=== PATIENT | male | born 1975 | race Two or more races ===

== ENCOUNTER 2016-03-06 14:35 | Emergency (ER) | payer OTHER ==
[2016-03-06 14:52] VITALS: BP 121/72; PULSE 84; TEMP 98.3; BMI 25.8
[2016-03-06 17:11] LABS: BASOPHIL 0.8 % (0-2.0); EOSINOPHIL 1.8 % (0-4.5); MCH 33.7 pg (25.7-33.7); MCHC 34.2 g/dl (32.0-35.9); MEAN CELL VOLUME 98.5 fl (80-96); NEUTROPHILS 67.4 % (42.8-82.8); RDW 13.3 % (11.9-15.9); WHITE BLOOD COUNT 7.8 K/mm3 (4.0-10.0)
--- NOTE | 2016-03-06 17:18 | PDOC ---
[id number] Initial Comments: 03/06/16 17:12 Mr. Maier is a 41 y/o male with no medical history presenting to the ED today complaining of RUQ abdominal pain and a R cheek boil. Pt. states that he has had some RUQ abdominal cramping over the last few weeks. He states that the pain comes and goes, with it being a 7/10 when its at its worse and 0/10 when the pain dissipates. He hasn't noted if the pain is better or worse with eating. Denies N/V/D, chest pain, palpitations, SOB. In regards to the boil on his face, it has been there for approximately one month and getting bigger in size. He states the area is warm to the touch and he has not been able to express any fluid from the site. He hopes he can have it drained today. <Kaylen Adhikari - Last Filed: 03/10/16 22:16> - General Chief Complaint: Pain, Acute Stated Complaint: ABD PAIN,BOIL Time Seen by Provider: 03/06/16 15:53 Past History <Jameson Matos - Last Filed: 03/06/16 19:45> - Past Medical History Other medical history: DENIES. - Immunization History Immunization Up to Date: No - Psycho/Social/Smoking Cessation Hx Anxiety: No Suicidal Ideation: No Smoking Status: Yes Smoking History: Current every day smoker Have you smoked in the past 12 months: Yes Number of Cigarettes Smoked Daily: 20 Information on smoking cessation initiated: No Hx Alcohol Use: Yes Drug/Substance Use Hx: No <Kaylen Adhikari - Last Filed: 03/10/16 22:16> - Past Medical History Allergies/Adverse Reactions: Allergies Allergy/AdvReac Type Severity Reaction Status Date / Time No Known Allergies Allergy Verified 03/06/16 14:48 Home Medications: Ambulatory Orders Cephalexin Monohydrate [Keflex -] 500 mg PO BID #14 capsule 03/06/16 Sulfamethoxazole/Trimethoprim [Bactrim Ds -] 1 tab PO BID #14 tablet 03/06/16 *Physical Exam - Vital Signs Last Vital Signs Temp Pulse Resp BP Pulse Ox 98.3 F 84 19 121/72 96 03/06/16 14:48 03/06/16 14:48 03/06/16 14:48 03/06/16 14:48 03/06/16 14:48 <Jameson Matos - Last Filed: 03/06/16 19:45> - Vital Signs Last Vital Signs Temp Pulse Resp BP Pulse Ox 98.3 F 84 19 121/72 96 03/06/16 14:48 03/06/16 14:48 03/06/16 14:48 03/06/16 14:48 03/06/16 14:48 - Physical Exam Comments: 03/06/16 17:18 GENERAL: The patient is awake, alert, and fully oriented, in no acute distress. HEAD: Normal with no signs of trauma. ENT: Pupils equal, round and reactive to light, extraocular movements intact, sclera anicteric, conjunctiva clear. Neck supple. LUNGS: Clear to auscultation bilaterally. Normal excursion. No respiratory distress or use of accessory muscles. CV: RRR, S1/S2, no MRG. Cap refill < 2 sec. ABDOMEN:(+) tenderness RUQ, (+) brandon's sign. Soft, non-distended. Normoactive bowel sounds present x4 quadants. EXTREMITIES: Normal range of motion, no edema. NEUROLOGICAL: Normal speech, normal gait. CN II-XII grossly intact. PSYCH: Normal mood, normal affect. SKIN: A fluctant mass approximately is noted on the R mandible area. There is no evidence of cellulitis. There is an obvious head to the cyst. Warm, dry, normal turgor, no rashes or lesions noted. <Kaylen Adhikari - Last Filed: 03/10/16 22:16> ED Treatment Course - LABORATORY CBC & Chemistry Diagram: 03/06/16 17:00 03/06/16 19:00 - ADDITIONAL ORDERS Additional order review: Laboratory Results 03/06/16 03/06/16 03/06/16 19:00 18:40 17:00 Sodium 143 Potassium 4.4 Chloride 106 Carbon Dioxide 30 Anion Gap 7 L BUN 12 Creatinine 0.9 Creat Clearance w eGFR > 60 Random Glucose 89 Calcium 9.6 Total Bilirubin 0.7 AST 14 L ALT 25 Alkaline Phosphatase 72 Total Protein 7.3 Albumin 4.1 Lipase 92 Urine Color Ltyellow Urine Appearance Clear Urine pH 5.0 Ur Specific [place] 1.013 Urine Protein Negative Urine Glucose (UA) Negative Urine Ketones Negative Urine Blood Negative Urine Nitrite Negative Urine Bilirubin Negative Urine Urobilinogen Negative Ur Leukocyte Esterase Negative 03/06/16 17:00 Sodium Cancelled Potassium Cancelled Chloride Cancelled Carbon Dioxide Cancelled Anion Gap Cancelled BUN Cancelled Creatinine Cancelled Creat Clearance w eGFR Cancelled Random Glucose Cancelled Calcium Cancelled Total Bilirubin Cancelled AST Cancelled ALT Cancelled Alkaline Phosphatase Cancelled Total Protein Cancelled Albumin Cancelled Lipase Urine Color Urine Appearance Urine pH Ur Specific [place] Urine Protein Urine Glucose (UA) Urine Ketones Urine Blood Urine Nitrite Urine Bilirubin Urine Urobilinogen Ur Leukocyte Esterase 03/06/16 17:00 RBC 4.81 MCV 98.5 H MCHC 34.2 RDW 13.3 Neutrophils % 67.4 Lymphocytes % 25.2 D Monocytes % 4.8 Eosinophils % 1.8 Basophils % 0.8 <Jameson Matos - Last Filed: 03/06/16 19:45> - LABORATORY CBC & Chemistry Diagram: 03/06/16 17:00 03/06/16 19:00 - RADIOLOGY Radiology Studies Ordered: Category Date Time Status GALLBLADDER US [US] Stat Ultrasound 03/06/16 16:08 Ordered <Kaylen Adhikari - Last Filed: 03/10/16 22:16> Medical Decision Making - Medical Decision Making 03/06/16 19:44 CMP- WNL. D/C patient to home. <Jameson Matos - Last Filed: 03/06/16 19:45> - Medical Decision Making 03/06/16 17:20 Mr. Lebron is a 41 y/o male with no PMH complaining of RUQ pain and a cyst on his R mandible. Given the colic nature of his pain and (+) brandon's I suspect possible cholecystitis. Will r/o other infection 1. Will order CBC, CMP, UA to evaluate abdominal pain 2. Will order US Gallbadder. 3. Will drain cyst. Will re-evaluate. 03/06/16 19:00 Drained the cyst on his R mandible with an 18 gauge needle. No anesthesia was needed for the procedure. Area was sterilized with betadine. Needle entered the sac and a large amount of white pus evacuated from the area. Assured full drainage. No loculations felt after drainage. Bleeding controlled with pressure. Band-aid placed over site. Will refer to endorsement clerk for removal of the sac. Ultra sound of the gall bladder shows mild distention without presence of gallstones or pericolic stranding. No acute findings at this time. Will recommend keeping food journal to see when the pain occurs again. CBC WNL. CMP speciemin hemolyzed. Waiting on redraw. If CMP is WNL, will discharge home Sign out given to Jameson Matos. Case was discussed and plan was confirmed. Waiting on labs to discharge home <Kaylen Adhikari - Last Filed: 03/10/16 22:16> *DC/Admit/Observation/Transfer - Discharge Dispostion Admit: No <Jameson Matos - Last Filed: 03/06/16 19:45> <Kaylen Adhikari - Last Filed: 03/10/16 22:16> Diagnosis at time of Disposition: Abscess Abdominal pain Qualifiers: Abdominal location: right upper quadrant Qualified Code(s): R10.11 - Right upper quadrant pain - Discharge Dispostion Disposition: HOME - Prescriptions Prescriptions: Sulfamethoxazole/Trimethoprim [Bactrim Ds -] 1 tab PO BID #14 tablet Cephalexin Monohydrate [Keflex -] 500 mg PO BID #14 capsule - Patient Instructions Printed Discharge Instructions: DI for Abdominal Pain-Adult, DI for Skin Abscess Additional Instructions: FOLLOW UP WITH YOUR DOCTOR THIS WEEK. CALL TO SCHEDULE APPOINTMENT. YOU MAY NEED A SURGEON TO FURTHER EVALUATION BOIL/ABSCESS TO FACE. TAKE MEDICATIONS PRESCRIBED WITH FOOD. RETURN IF ANY CONCERNS FOR FURTHER EVALUATION. Print Language: ROMANIAN
[2016-03-06 18:47] LABS: URINE APPEARANCE CLEAR; URINE BILIRUBIN NEGATIVE (NEGATIVE); URINE BLOOD NEGATIVE (NEGATIVE); URINE COLOR LTYELLOW; URINE GLUCOSE (UA) NEGATIVE (NEGATIVE); URINE KETONE NEGATIVE (NEGATIVE); URINE LEUK ESTERASE NEGATIVE (NEGATIVE); URINE NITRITE NEGATIVE (NEGATIVE); URINE PROTEIN NEGATIVE (NEGATIVE); URINE UROBILINOGEN NEGATIVE E.U./dl (0.2-1.0)
[2016-03-06 19:33] LABS: ALBUMIN 4.1 g/dl (3.4-5.0); ANION GAP 7 (8-16); CALCIUM 9.6 mg/dL (8.5-10.1); CO2 30 mmol/L (21-32); CREATININE 0.9 mg/dL (0.7-1.3); GLUCOSE,RANDOM 89 mg/dL (74-106); SGOT/AST 14 U/L (15-37); SGPT/ALT 25 U/L (12-78)
[2016-03-06 19:34] LABS: ALK PHOS 72 U/L (45-117); BILIRUBIN,TOTAL 0.7 mg/dL (0.2-1.0); TOT PROT 7.3 g/dl (6.4-8.2)
== END 2016-03-06 20:15 | disposition home or self-care (01) ==
LOC: JER 14:35
PROC: 0J913ZZ Drainage of Face Subcutaneous Tissue and Fascia, Percutaneous Approach (ICD-10-PCS; principal; 2016-03-06)
DX: L02.01 Cutaneous abscess of face (principal); R10.11 Right upper quadrant pain
CPT/HCPCS: 10160; 36415; 76705-TC; 80053; 81003; 83690; 85025; 99282-25

== ENCOUNTER 2018-11-05 21:40 | Emergency (ER) | payer OTHER ==
[2018-11-05 21:49] VITALS: BMI 22.8
--- NOTE | 2018-11-05 22:26 | PDOC ---
History of Present Illness - General Chief Complaint: Pain, Acute Stated Complaint: ABD PAIN Time Seen by Provider: 11/05/18 22:20 History Source: Patient - History of Present Illness Initial Comments: 11/05/18 22:21 43 year old c/o right groin pain for months today pain is constant. denies vomiting patient reports diarrhea. denies fever/ chills. denies urinary symptoms. denies tesicular pain . patient reports that " i think i have a hernia " PMHX: none 11/05/18 22:25 11/05/18 22:25 Past History - Past Medical History Allergies/Adverse Reactions: Allergies Allergy/AdvReac Type Severity Reaction Status Date / Time No Known Allergies Allergy Verified 11/05/18 21:46 COPD: No - Immunization History Immunization Up to Date: No - Psycho Social/Smoking Cessation Hx Smoking Status: Yes Smoking History: Current some day smoker Have you smoked in the past 12 months: No Number of Cigarettes Smoked Daily: 20 Information on smoking cessation initiated: No Hx Alcohol Use: No Drug/Substance Use Hx: No Substance Use Type: None Review of Systems - Review of Systems Able to Perform ROS?: Yes Is the patient limited Latvian proficient: No Constitutional: No: Symptoms Reported, See HPI, Chills, Diaphoresis, Fever, Loss of Appetite, Malaise, Night Sweats, Weakness, Weight Stable, Unintentional Wgt. Loss, Unexplained wgt Loss, Other ABD/GI: Yes: Other (right sided groin pain and RLQ pain) *Physical Exam - Vital Signs Last Vital Signs Temp Pulse Resp BP Pulse Ox 98.8 F 88 18 122/72 96 11/05/18 21:46 11/05/18 21:46 11/05/18 21:46 11/05/18 21:46 11/05/18 21:46 - Physical Exam General Appearance: Yes: Appropriately Dressed Respiratory/Chest: positive: Lungs Clear, Labored Respiration Gastrointestinal/Abdominal: positive: Normal Bowel Sounds, Soft. negative: Tender Male Genitalia: positive: normal genitalia, inguinal hernia (right inguinal reducible). negative: testicular tenderness, testicular mass Musculoskeletal: positive: Normal Inspection. negative: CVA Tenderness Integumentary: positive: Normal Color, Dry, Warm Neurologic: positive: Fully Oriented, Alert, Normal Mood/Affect ED Progress Note - Progress Note Progress Note: 11/06/18 01:09 right inguinal hernia P: outpatient surgery follow up. strict return precautions reviewed with patient Discharge - Discharge Information Problems reviewed: Yes Clinical Impression/Diagnosis: Right inguinal hernia - Follow up/Referral Referrals: Corwin Singleton MD [Staff Physician] - Kashmir Ortiz [Staff Physician] - - Patient Discharge Instructions Patient Printed Discharge Instructions: Groin Hernia -- Adult Additional Instructions: your exam it shows that you have a right inguinal hernia. Return to the emergency room if the hernia is stuck or unable to reduce or increased swelling. Return to the emergency room if he developed fever nausea vomiting or any worsening abdominal pain.Follow up with an surgeon as soon as possible. - Post Discharge Activity Work/Back to School Note: Back to Work
[2018-11-05 22:53] VITALS: BP 134/65; PULSE 67; TEMP 98
== END 2018-11-05 22:56 | disposition home or self-care (01) ==
LOC: JER 21:40
DX: K40.90 Unilateral inguinal hernia, without obstruction or gangrene, not specified as recurrent (principal); F17.210 Nicotine dependence, cigarettes, uncomplicated
CPT/HCPCS: 99282-25

== ENCOUNTER 2019-03-03 22:55 | Emergency (ER) | payer OTHER ==
[2019-03-03 23:16] VITALS: BP 126/73; PULSE 88; TEMP 98.1; BMI 32.8
--- NOTE | 2019-03-04 00:55 | PDOC ---
History of Present Illness - General Chief Complaint: Hematuria Stated Complaint: URINATING BLOOD Time Seen by Provider: 03/04/19 00:54 Past History - Past Medical History Allergies/Adverse Reactions: Allergies Allergy/AdvReac Type Severity Reaction Status Date / Time No Known Allergies Allergy Verified 03/03/19 23:09 COPD: No - Immunization History Immunization Up to Date: No - Psycho Social/Smoking Cessation Hx Smoking Status: Yes Smoking History: Never smoked Have you smoked in the past 12 months: No Number of Cigarettes Smoked Daily: 20 Hx Alcohol Use: No Drug/Substance Use Hx: No Substance Use Type: None *Physical Exam - Vital Signs Last Vital Signs Temp Pulse Resp BP Pulse Ox 98.1 F 88 19 126/73 98 03/03/19 23:00 03/03/19 23:00 03/03/19 23:00 03/03/19 23:00 03/03/19 23:00 Discharge - Discharge Information Condition: Fair - Follow up/Referral - Patient Discharge Instructions - Post Discharge Activity
--- NOTE | 2019-03-04 01:18 | PDOC ---
Documentation entered by Keaton Sheldon SCRIBE, acting as scribe for Marcia Han MD. Marcia Han MD: This documentation has been prepared by the Pito thurman Xhesika, SCRIBE, under my direction and personally reviewed by me in its entirety. I confirm that the documentation accurately reflects all work, treatment, procedures, and medical decision making performed by me. History of Present Illness - General Chief Complaint: Hematuria Stated Complaint: URINATING BLOOD Time Seen by Provider: 03/04/19 00:54 History Source: Patient Exam Limitations: No Limitations - History of Present Illness Initial Comments: 03/04/19 01:09 The patient is a 44 year old male with no significant PMH of who presents to the emergency department for hematuria and 1 episode of vomiting last night. The patient denies flank pain, chest pain, shortness of breath, headache and dizziness. Denies fever, chills, cough, nausea, diarrhea and constipation. Denies dysuria, frequency, urgency and hematuria. Allergies: NKDA Social Hx: 1/2 ppd smoker. Occasional alcohol use. Past History - Past Medical History Allergies/Adverse Reactions: Allergies Allergy/AdvReac Type Severity Reaction Status Date / Time No Known Allergies Allergy Verified 03/03/19 23:09 COPD: No - Immunization History Immunization Up to Date: No - Psycho Social/Smoking Cessation Hx Smoking Status: Yes Smoking History: Never smoked Have you smoked in the past 12 months: No Number of Cigarettes Smoked Daily: 20 Hx Alcohol Use: No Drug/Substance Use Hx: No Substance Use Type: None Review of Systems - Review of Systems Able to Perform ROS?: Yes Comments:: 03/04/19 01:10 GENERAL/CONSTITUTIONAL: No fever or chills. No weakness. HEAD, EYES, EARS, NOSE AND THROAT: No change in vision. No ear pain or discharge. No sore throat. CARDIOVASCULAR: No chest pain or shortness of breath. RESPIRATORY: No cough, wheezing, or hemoptysis. GASTROINTESTINAL: No nausea, diarrhea or constipation. +vomiting GENITOURINARY: No dysuria, frequency. +hematuria MUSCULOSKELETAL: No joint or muscle swelling or pain. No neck or back pain. SKIN: No rash NEUROLOGIC: No headache, vertigo, loss of consciousness, or change in strength/ sensation. ENDOCRINE: No increased thirst. No abnormal weight change. HEMATOLOGIC/LYMPHATIC: No anemia, easy bleeding, or history of blood clots. ALLERGIC/IMMUNOLOGIC: No hives or skin allergy. *Physical Exam - Vital Signs Last Vital Signs Temp Pulse Resp BP Pulse Ox 98.1 F 88 19 126/73 98 03/03/19 23:00 03/03/19 23:00 03/03/19 23:00 03/03/19 23:00 03/03/19 23:00 - Physical Exam 03/04/19 01:10 GENERAL: Awake, alert, and fully oriented, in no acute distress HEAD: No signs of trauma NECK: Normal ROM, supple, no lymphadenopathy, JVD, or masses LUNGS: Breath sounds equal, clear to auscultation bilaterally. No wheezes, and no crackles HEART: Regular rate and rhythm, normal S1 and S2, no murmurs, rubs or gallops ABDOMEN: +reproducible umbilical hernia. Soft, nontender, normoactive bowel sounds. No guarding, no rebound. No masses EXTREMITIES: Normal range of motion, no edema. No clubbing or cyanosis. No cords, erythema, or tenderness NEUROLOGICAL: Cranial nerves II through XII grossly intact. SKIN: Warm, Dry, normal turgor, no rashes or lesions noted. ED Treatment Course - LABORATORY CBC & Chemistry Diagram: 03/04/19 01:55 03/04/19 01:55 Medical Decision Making - Medical Decision Making 03/04/19 01:19 44-year-old male states that last evening he had an episode of vomiting and some hematuria He denies any past medical history, he denies any past surgical history Social history half a pack of tobacco daily, EtOH 03/04/19 01:51 Patient has benign abdominal exam, small reducible umbilical hernia UA does not show any hematuria and there is no UTI Patient has no fever chills and has had no nausea or vomiting today CBC, chemistry pending Discharge - Discharge Information Problems reviewed: Yes Clinical Impression/Diagnosis: Hematuria Qualifiers: Hematuria type: unspecified type Qualified Code(s): R31.9 - Hematuria, unspecified Umbilical hernia Qualifiers: Obstruction and gangrene presence: without obstruction or gangrene Qualified Code(s): K42.9 - Umbilical hernia without obstruction or gangrene Condition: Good Disposition: HOME - Admission No - Follow up/Referral Referrals: [facility] [place] [facility] [place] [Provider Group] Roland Mendosa MD [Staff Physician] - - Patient Discharge Instructions Patient Printed Discharge Instructions: Abdominal Hernia, DI for Hematuria Additional Instructions: Please follow up with the primary care doctor below. Please return if you have any new, worsening or concerning symptoms, especially increasing pain, fever, and vomiting. - Post Discharge Activity
[2019-03-04 01:35] LABS: URINE APPEARANCE CLEAR; URINE BILIRUBIN NEGATIVE (NEGATIVE); URINE COLOR YELLOW; URINE GLUCOSE (UA) NEGATIVE (NEGATIVE); URINE KETONE TRACE (NEGATIVE); URINE LEUK ESTERASE NEGATIVE (NEGATIVE); URINE NITRITE NEGATIVE (NEGATIVE); URINE PROTEIN NEGATIVE (NEGATIVE)
--- NOTE | 2019-03-04 02:10 | PDOC ---
*Physical Exam - Vital Signs Last Vital Signs Temp Pulse Resp BP Pulse Ox 98.1 F 88 19 126/73 98 03/03/19 23:00 03/03/19 23:00 03/03/19 23:00 03/03/19 23:00 03/03/19 23:00 ED Treatment Course - LABORATORY CBC & Chemistry Diagram: 03/04/19 01:55 03/04/19 01:55 - ADDITIONAL ORDERS Additional order review: Laboratory Results 03/04/19 01:26 Urine Color Yellow Urine Appearance Clear Urine pH 7.0 D Ur Specific [place] 1.028 Urine Protein Negative Urine Glucose (UA) Negative Urine Ketones Trace H Urine Blood Negative Urine Nitrite Negative Urine Bilirubin Negative Urine Urobilinogen 1.0 Ur Leukocyte Esterase Negative Medical Decision Making - Medical Decision Making 03/04/19 03:[address] Han. Patient is 44M here today reporting hematuria. UA clear. CBC stable. CMP shows normal kidney function. Will discharge home with PCP follow up. Patient also is requesting general surgery for hernia that is reducible and nontender. General surgery follow up given. Discharge - Discharge Information Problems reviewed: Yes Clinical Impression/Diagnosis: Hematuria, Umbilical hernia Condition: Good Disposition: HOME - Admission No - Follow up/Referral Referrals: Roland Mendosa MD [Staff Physician] - [facility] [place] [facility] [place] [Provider Group] - Patient Discharge Instructions Patient Printed Discharge Instructions: Abdominal Hernia, DI for Hematuria Additional Instructions: Please follow up with the primary care doctor below. Please return if you have any new, worsening or concerning symptoms, especially increasing pain, fever, and vomiting. - Post Discharge Activity
[2019-03-04 02:40] LABS: BASO % 0.5 % (0-2.0); EOS % 3.1 % (0-4.5); HEMATOCRIT 46.8 % (35.4-49); HEMOGLOBIN 15.7 GM/dL (11.7-16.9); LYMPH % 27.5 % (8-40); MCH 34.2 pg (25.7-33.7); MCHC 33.7 g/dl (32.0-35.9); MEAN CELL VOLUME 101.6 fl (80-96); MEAN PLT VOLUME 7.2 fl (7.5-11.1); MONO % 7.6 % (3.8-10.2); NEUT % 61.3 % (42.8-82.8); PLATELET COUNT 441 K/MM3 (134-434); RDW 13.2 % (11.9-15.9); WHITE BLOOD COUNT 9.1 K/mm3 (4.0-10.0)
[2019-03-04 03:12] LABS: ALBUMIN 3.6 g/dl (3.4-5.0); BILIRUBIN,TOTAL 0.1 mg/dL (0.2-1); BLOOD UREA NITROGEN 18.7 mg/dL (7-18); POTASSIUM 4.4 mmol/L (3.5-5.1); TOT PROT 6.6 g/dl (6.4-8.2)
== END 2019-03-04 03:39 | disposition home or self-care (01) ==
LOC: JER 22:55
DX: K42.9 Umbilical hernia without obstruction or gangrene (principal); F17.210 Nicotine dependence, cigarettes, uncomplicated
CPT/HCPCS: 36415; 80053; 81003; 85025; 99282-25

== ENCOUNTER → 2019-03-26 | Day surgery (SDC) | payer OTHER ==
[2019-03-25 15:18] VITALS: BMI 23.6
[~2019-03-26] MED LIST: BENZOIN/ALOE VERA/STORAX/TOLU 58 ML BOTTLE ONE; BUPIVACAINE HCL/PF 0.5% (5 MG/ML) 30 ML VIAL IJ ONE; DEXAMETHASONE SOD PHOSPHATE 4 MG/1 ML VIAL ONE; KETOROLAC TROMETHAMINE 30 MG/1 ML VIAL ONE; LIDOCAINE HCL 1%, 10 MG/ML (20ML VIAL) NR ONE; LIDOCAINE HCL 1%, 10 MG/ML (20ML VIAL) ONE; LIDOCAINE HCL/PF 2% SDV 5ML VIAL ONE; MIDAZOLAM HCL 2 MG/2 ML SINGLE DOSE VIAL ONE; ONDANSETRON 4 MG/2 ML VIAL IVPUSH PRN; PROMETHAZINE HCL 25 MG/1 ML VIAL IVPUSH PRN; ROCURONIUM BROMIDE 50 MG/5 ML SYRINGE ONE; ceFAZolin 2 GRAM PREMIX BAG IVPB ONE; ceFAZolin SODIUM 1 GM VIAL ONE; fentaNYL CITRATE 250 MCG/5 ML VIAL ONE; oxyCODONE HCL 5 MG TABLET PO PRN
--- NOTE | 2019-03-26 12:19 | HP ---
History & Physical Update - History History: No Change - Physical Physical: No Change - Assessment Assessment: No Change - Plan Plan: No Change (for repair right inguinal hernia w/mesh and umbilical hernia and ecision of soft tissue mass left lateral thigh; informed consent obtained this AM.)
--- NOTE | 2019-03-26 15:35 | OP ---
Operative Note - Note: Operative Date: 03/26/19 Pre-Operative Diagnosis: right inguinal hernia/umbilical hernia/left alteral thigh mass Operation: repair right inguinal hernia w/mesh; repair umbilical hernia and excision of soft tissue mass of the left lateral thigh Findings: indirect LIH w/lipoma of the cord and weak floor; umbilical hernia w/ 1.5 cm. fascial defect and ~ 6.0 cm. sebaceous cyst of the left lateral thigh. Post-Operative Diagnosis: Same as Pre-op Surgeon: Roland Mendosa Buildings And Grounds Director: Leonidas Garcia II Anesthesiologist/BOTTLE LINE WORKER: Chavez Lyons Anesthesia: General Specimens Removed: inguinal hernia sac/lipoma of the cord/umbilical hernia sac/ sebaceus cyst Estimated Blood Loss (mls): 15
--- NOTE | 2019-03-26 15:54 | SURG ---
Surgery Property Management Supervisor Note Property Management Supervisor: THEA Mazariegos Date of Service: 03/26/19 Diagnosis: Pre-Operative Diagnosis: right inguinal hernia/umbilical hernia/left alteral thigh mass Procedure: Operation: repair right inguinal hernia w/mesh; repair umbilical hernia and excision of soft tissue mass of the left lateral thigh I was present for the entirety of the operative procedure. For further detail, please refer to operative report.
[2019-03-26 17:58] VITALS: BP 147/83; PULSE 98; TEMP 98.5
--- NOTE | 2019-03-28 19:00 | PATH ---
Surgical Pathology Report Patient Name: MARIANELA CORDOVA [facility]. Rec. #: [id number] /Age/Gender: 1975 (Age: 44) / M Account: [id number] Location: [facility] Taken: 03/26/2019 Received: 03/27/2019 Reported: 03/28/2019 Physicians: Roland Mendosa MD Specimen(s) Received A: INGUINAL HERNIA SAC B: UMBILICAL HERNIA SAC C: SOFT TISSUE MASS LEFT LATERAL THIGH Clinical History Right inguinal hernia, umbilical hernia, left lateral thigh mass Final Diagnosis A. INGUINAL HERNIA SAC, RIGHT, REPAIR: HERNIA SAC. B. UMBILICAL HERNIA SAC, REPAIR: FIBROADIPOSE TISSUE COMPATIBLE WITH HERNIA SAC. C. SOFT TISSUE MASS, LATERAL THIGH, LEFT, EXCISION: EPIDERMAL INCLUSION CYST. Electronically Signed Cristela Jacobs M.D. Gross Description A. Received in formalin labeled "hernia sac inguinal," are 2 shipley deal, irregular portions of fibrous tissue and fat measuring 3.7 x 2.0 x 0.8 cm and 5.5 x 3.0 x 1.0 cm. No areas of hemorrhage or necrosis are identified. Stitcher Around sections are submitted in one cassette. B. Received in formalin labeled "umbilical hernia sac," is a 4.9 x 1.8 x 1.4 cm portion of fibromembranous tissue with attached fat, consistent with a hernia sac. No areas of hemorrhage or necrosis are identified. Stitcher Around sections are submitted in one cassette. C. Received in formalin labeled "soft tissue mass left lateral thigh," is a 2.7 x 2.5 x 2.0 cm shipley allen, encapsulated soft tissue mass. There is a 2.4 x 1.2 cm shipley-brown, elliptical, unremarkable portion of skin attached to the mass. Sectioning reveals an intact cyst containing shipley deal sebaceous material. A customer success representative section is submitted in one cassette. /03/27/2019 saudi03/27/2019
--- NOTE | 2019-04-01 11:20 | OP ---
DATE OF OPERATION: 03/26/2019 PREOPERATIVE DIAGNOSIS: Right inguinal hernia, umbilical hernia, and left lateral thigh mass. POSTOPERATIVE DIAGNOSIS: Right inguinal hernia, umbilical hernia, and left lateral thigh mass. PROCEDURE: Repair right inguinal hernia with mesh and repair of umbilical hernia and excision of soft tissue mass of the left lateral thigh. SURGEON: Roland Mendosa MD ARMATURE REWINDER: Leonidas Garcia II, PA-C ANESTHESIA: General. OPERATIVE FINDINGS: There was an indirect right inguinal hernia with a lipoma of the cord and weak floor. There was an umbilical hernia with a 1.5-cm fascial defect and an approximately 6-cm sebaceous cyst of the left lateral thigh. DESCRIPTION OF PROCEDURE: The patient was placed on the operating table in supine position. After the induction of general anesthesia, the patient's lower abdomen was prepped with ChloraPrep and draped in sterile fashion. A time-out was taken and incision mapped out in the right groin and the area infiltrated with 1% Xylocaine, 0.5% Marcaine in equal concentrations. Incision was made with a scalpel and taken down through skin and subcutaneous tissue and through La fascia to the external oblique fascia, which was divided proximally and distally in the direction of its fibers. The cord structures and nerve were elevated at the level of the pubic tubercle and a Avilla drain placed around them for retraction and identification purposes. Within the substance of the cord, an indirect inguinal hernia sac was identified. It was dissected up to the internal ring where a high ligation was carried out with 2-0 Vicryl suture and the redundant sac excised and sent for pathological examination. Similarly, a lipoma of the cord was clamped at its base, excised, and sent for pathological examination and the pedicle ligated with 2-0 Vicryl suture. Next, the floor of the inguinal canal was repaired by fashioning a piece of ProGrip mesh into the defect and anchoring it to the pubic tubercle, shelving edge, and conjoint tendon respectively. A keyhole was created through the cord structures, and they were brought above the cord and crossed and anchored there with interrupted 2-0 Prolene. Hemostasis was checked for and noted to be good, and the wound was copiously irrigated with sterile saline. The cord structures and nerve were returned to their normal anatomic position and the external oblique fascia closed over them using continuous 2-0 Vicryl recreating the external ring. La fascia was reapproximated with interrupted 2-0 Vicryl, the deep dermis with interrupted 3-0 Vicryl, and the skin edges with 4-0 Monocryl in a subcuticular fashion. Steri-Strips were placed and the incision covered with a sterile towel and then attention turned to the umbilical hernia site. An incision was mapped out on the infraumbilical skin crease from the 3 to 9 o' clock position, and incision was made with a scalpel and taken down through skin and subcutaneous tissue to the abdominal wall. The umbilical stalk was bluntly encircled and the umbilicus dissected off its stalk where the hernia sac was entered. Redundant sac was excised and sent for pathological examination and then the defect, which was 1.5 cm in diameter, was repaired with several 0 Ti-Cron horizontal mattress sutures. Hemostasis was checked for and noted to be good and then the wound was copiously irrigated with sterile saline and the umbilicus tacked down to the abdominal wall with interrupted 2-0 Vicryl and the deep dermis reapproximated with interrupted 3-0 Vicryl and the skin edges with 4-0 Monocryl in a subcuticular fascia. Steri-Strips were placed and then the incision covered with a sterile towel. Next, the left lateral thigh was prepped with ChloraPrep and draped after changing gowns and gloves where an incision mapped out over the palpable clinical approximately 6 cm in diameter sebaceous cyst. An elliptical incision to remove part of the skin attached to the cyst was included. Incision was made with a scalpel and taken down through skin and subcutaneous tissue, and using blunt dissection, the entire cyst and the overlying skin containing the punctum were excised and sent for pathological examination. Hemostasis was secured with electrocautery and the wound irrigated with sterile saline. The incision was closed in layers with interrupted 3-0 Vicryl for the deep dermis and 4-0 Monocryl in a subcuticular, continuous fashion to reapproximate the skin edges. Steri-Strips were placed and dry, sterile dressings placed on the remaining 2 incision sites and covered with Tegaderm dressing. The procedure was terminated at this point and the patient aroused from general anesthesia and transferred to the post anesthesia care unit in stable condition awake and alert. ESTIMATED BLOOD LOSS: 15 mL. REPLACEMENT: Crystalloid. DRAINS: None. SPECIMENS: Inguinal hernia sac, lipoma of the cord, umbilical hernia sac, and sebaceous cyst to Pathology. I, Roland Mendosa, was physically present in the operating room from the time the patient was placed on the operating room table until he was transferred to the post anesthesia care unit [facility]. MD DOMINIC Bonds/[id number] MTDD
== END | disposition home or self-care (01) ==
LOC: JASU-SURG 10:53
PROVIDERS: ATTEND Surgery
PROC: 0HQJXZZ Repair Left Upper Leg Skin, External Approach (ICD-10-PCS; 2019-03-26)
PROC: 0HBJXZZ Excision of Left Upper Leg Skin, External Approach (ICD-10-PCS; 2019-03-26)
PROC: 0YU50JZ Supplement Right Inguinal Region with Synthetic Substitute, Open Approach (ICD-10-PCS; principal; 2019-03-26 12:30)
PROC: 0WUF0JZ Supplement Abdominal Wall with Synthetic Substitute, Open Approach (ICD-10-PCS; 2019-03-26 12:30)
DX: K40.90 Unilateral inguinal hernia, without obstruction or gangrene, not specified as recurrent (principal); K42.9 Umbilical hernia without obstruction or gangrene; L72.0 Epidermal cyst
CPT/HCPCS: 88302-TC; 88304-TC; 94760

== ENCOUNTER 2022-01-18 20:44 | Emergency (ER) | payer OTHER ==
[2022-01-18 21:12] VITALS: BP 145/82; PULSE 92; RESP 18; TEMP 98.2; BMI 23.6
[2022-01-18] MEDS ORDERED: SODIUM CHLORIDE 0.9% 500 ML INFUS.BAG IV ONE (22:19)
[2022-01-18 23:59] LABS: BASO % 0.7 % (0-2.0); EOS % 2.1 % (0-4.5); HEMATOCRIT 44.1 % (35.4-49); HEMOGLOBIN 14.9 GM/dL (11.7-16.9); MCH 34.6 pg (25.7-33.7); MCHC 33.8 g/dl (32.0-35.9); MEAN CELL VOLUME 102.3 fl (80-96); MEAN PLT VOLUME 6.7 fl (7.5-11.1); MONO % 6.3 % (3.8-10.2); NEUT % 72.9 % (42.8-82.8); PLATELET COUNT 400 10^3/uL (134-434); RBC 4.31 M/mm3 (4.00-5.60); RDW 12.7 % (11.9-15.9); WHITE BLOOD COUNT 12.9 K/mm3 (4.0-10.0)
[2022-01-19 00:09] LABS: INR 0.96 (0.83-1.09)
[2022-01-19 00:12] LABS: ACTIVATED PTT 28.3 SECONDS (25.2-36.5)
[2022-01-19 00:23] LABS: ALBUMIN 3.4 g/dl (3.4-5.0); BLOOD UREA NITROGEN 16.1 mg/dL (7-18); CALCIUM 8.6 mg/dL (8.5-10.1)
[2022-01-19 00:26] LABS: CREATININE 0.9 mg/dL (0.55-1.3)
[2022-01-19 00:28] LABS: BILIRUBIN,TOTAL 0.3 mg/dL (0.2-1); TOT PROT 6.6 g/dl (6.4-8.2)
[2022-01-19] MEDS ORDERED: ACETAMINOPHEN 1000 MG/100 ML BAG IVPB ONE (02:35)
== END 2022-01-19 04:00 | disposition left against medical advice (07) ==
LOC: JER 20:44
PROC: 3E0333Z Introduction of Anti-inflammatory into Peripheral Vein, Percutaneous Approach (ICD-10-PCS; principal; 2022-01-18)
DX: M79.641 Pain in right hand (principal)
CPT/HCPCS: 36415; 70450-TC; 72125-TC; 73206-TC-RT; 80053; 84484; 85025; 85379; 85610; 85730; 86780; 86850; 86900; 86901; 93005; 93010; 99284-25; Q9967

== ENCOUNTER 2022-10-18 16:55 | Emergency (ER) | payer OTHER ==
[2022-10-18 17:04] VITALS: BMI 24.3
[2022-10-18] MEDS ORDERED: KETOROLAC TROMETHAMINE 30 MG/1 ML VIAL IVPUSH ONE (18:44)
[2022-10-18] MEDS ORDERED: KETOROLAC TROMETHAMINE 30 MG/1 ML VIAL ONE (18:51)
[2022-10-18 19:17] LABS: HEMATOCRIT 48.5 % (35.4-49); HEMOGLOBIN 16.6 GM/dL (11.7-16.9); MCH 34.6 pg (25.7-33.7); MCHC 34.2 g/dl (32.0-35.9); MEAN CELL VOLUME 101.2 fl (80-96); MEAN PLT VOLUME 7.1 fl (7.5-11.1); PLATELET COUNT 399 10^3/uL (134-434); RBC 4.79 M/mm3 (4.00-5.60); WHITE BLOOD COUNT 20.4 K/mm3 (4.0-10.0)
[2022-10-18 19:19] LABS: EPI CELLS 17 /uL (0-25.1); HYALINE CASTS 1 /uL (0-3.1); PH,URINE 6.5 (5.0-8.0); URINE APPEARANCE CLEAR; URINE BACTERIA 17 /uL (0-1359); URINE BILIRUBIN NEGATIVE (NEGATIVE); URINE COLOR YELLOW; URINE GLUCOSE (UA) NEGATIVE (NEGATIVE); URINE KETONE 1+ (NEGATIVE); URINE LEUK ESTERASE NEGATIVE (NEGATIVE); URINE NITRITE NEGATIVE (NEGATIVE); URINE PROTEIN 1+ (NEGATIVE); URINE RBC 9 /uL (0-23.9); URINE UROBILINOGEN 0.2 mg/dL (0.2-1.0); URINE WBC 17 /uL (0-25.8)
[2022-10-18 19:58] LABS: CHLORIDE 101 mmol/L (98-107); SODIUM 124 mmol/L (136-145)
[2022-10-18 20:00] LABS: CALCIUM 8.4 mg/dL (8.5-10.1)
[2022-10-18 20:01] LABS: ALBUMIN 3.5 g/dl (3.4-5.0); BLOOD UREA NITROGEN 10.8 mg/dL (7-18); CO2 30 mmol/L (21-32); GLUCOSE,RANDOM 115 mg/dL (74-106)
[2022-10-18 20:04] LABS: CREATININE 1.1 mg/dL (0.55-1.3)
[2022-10-18 20:05] LABS: ALK PHOS 74 U/L (45-117); TOT PROT 8.8 g/dl (6.4-8.2)
[2022-10-18 20:08] LABS: ANION GAP -7 MMOL/L (8-16); POTASSIUM > 10.0 mmol/L (3.5-5.1)
[2022-10-18] MEDS ORDERED: SODIUM CHLORIDE 1,000 ML IV STA (21:06)
[2022-10-18 21:27] LABS: POTASSIUM 4.2 mmol/L (3.5-5.1)
[2022-10-18 21:29] LABS: ALBUMIN 3.6 g/dl (3.4-5.0); BLOOD UREA NITROGEN 10.9 mg/dL (7-18); CALCIUM 8.6 mg/dL (8.5-10.1)
[2022-10-18 21:33] LABS: CREATININE 1.2 mg/dL (0.55-1.3)
[2022-10-18 21:35] LABS: BILIRUBIN,TOTAL 0.6 mg/dL (0.2-1)
[2022-10-18] MEDS ORDERED: CEFTRIAXONE 1 GM in DEXTROSE 5%-WATER - 100 ML IVPB ONE (23:24)
[2022-10-18 23:25] LABS: ANISOCYTOSIS 2+; MACROCYTOSIS 2+
[2022-10-18 23:33] VITALS: BP 149/90; PULSE 62; RESP 16; TEMP 97.8
[2022-10-18] MEDS ORDERED: CEFTRIAXONE 2 GM/100 ML BAG IVPB ONE (23:34)
== END 2022-10-19 00:26 | disposition left against medical advice (07) ==
LOC: JER 16:55
PROC: 3E03329 Introduction of Other Anti-infective into Peripheral Vein, Percutaneous Approach (ICD-10-PCS; principal; 2022-10-18)
PROC: 3E0333Z Introduction of Anti-inflammatory into Peripheral Vein, Percutaneous Approach (ICD-10-PCS; 2022-10-18)
PROC: 3E0337Z Introduction of Electrolytic and Water Balance Substance into Peripheral Vein, Percutaneous Approach (ICD-10-PCS; 2022-10-18)
DX: R10.32 Left lower quadrant pain (principal); R11.10 Vomiting, unspecified; K52.9 Noninfective gastroenteritis and colitis, unspecified; N12 Tubulo-interstitial nephritis, not specified as acute or chronic
CPT/HCPCS: 36415; 74177-TC; 80053; 81003; 85025; 87086; 99285-25; Q9967